=== PATIENT | female | born 1965 | race Caucasian/White ===

== ENCOUNTER 2018-09-12 21:17 | Emergency (ER) | payer OTHER ==
[~2018-09-12] VITALS: Ht 157.5 cm; Wt 68.0 kg
[~2018-09-12 21:17] MED LIST: SYNTHROID PO
[2018-09-12 22:06] LABS: BASOPHILS % (AUTO) 0.5 % (0.0-2.0); EOSINOPHILS # (AUTO) 0.1 K/uL (0.0-0.7); HEMOGLOBIN 13.1 g/dL (10.9-14.3); MONOCYTES # (AUTO) 0.7 K/uL (2.0-10.0); NEUTROPHILS # (AUTO) 4.8 K/uL (1.8-8.9); WHITE BLOOD COUNT (AUTO) 8.3 K/uL (3.8-11.8)
[2018-09-12 22:15] LABS: EOSINOPHILS % (AUTO) 1.5 % (0.0-7.0); HEMATOCRIT 41.4 % (31.2-41.9); LYMPHOCYTES # (AUTO) 2.6 K/uL (20.0-40.0); LYMPHOCYTES % (AUTO) 31.8 % (20.5-51.5); MEAN CORPUSCULAR HEMOGLOBIN 25.1 uug (24.7-32.8); MEAN CORPUSCULAR HGB CONC 32 g/dL (32.3-35.6); MEAN CORPUSCULAR VOLUME 79.4 fL (75.5-95.3); MONOCYTES % (AUTO) 8.6 % (0.0-11.0); NEUTROPHILS % (AUTO) 57.6 % (38.5-71.5); PLATELET COUNT (AUTO) 285 K/uL (179-408); RED BLOOD CELL COUNT(AUTO) 5.21 MIL/uL (3.63-4.92)
[2018-09-12 22:20] LABS: CREATININE 0.5 mg/dL (0.6-1.3); POTASSIUM 4.3 mmol/L (3.5-5.1)
--- NOTE | 2018-09-12 22:20 | NUR ---
DR LORA INTO DO RECTAL EXAM WITH NURSING MAIL SERVICE COORDINATOR MARILYN INTO UNIVERSITY MANAGER
--- NOTE | 2018-09-12 22:46 | NUR ---
Dr. Bowles at bedside for MSE.
--- NOTE | 2018-09-12 22:52 | NUR ---
Patient discharged to home in stable conditon. Written and verbal after care instructions given. Patient verbalizes understanding of instructions. WALKED OUT OF ER WITH NO DISTRESS NOTED
[2018-09-12 22:54] VITALS: BP 120/78
== END 2018-09-12 22:54 | disposition home or self-care (01) ==
LOC: ER 21:17
DX: K60.2 Anal fissure, unspecified (principal); K64.9 Unspecified hemorrhoids; Z79.899 Other long term (current) drug therapy
CPT/HCPCS: 36415; 85025; 85730; 86850; 86900; 86901; A4663

== ENCOUNTER 2019-09-15 13:29 | Emergency (ER) | payer OTHER ==
[~2019-09-15] VITALS: Ht 157.5 cm; Wt 68.0 kg
[2019-09-15] MEDS ORDERED: CEPH500C2 PO (13:44)
[2019-09-15 13:57] VITALS: BP 127/88
== END 2019-09-15 14:01 | disposition home or self-care (01) ==
LOC: ER 13:29
DX: K04.7 Periapical abscess without sinus (principal)
CPT/HCPCS: A4663

== ENCOUNTER 2022-08-21 22:52 | Emergency (ER) | payer OTHER ==
[~2022-08-21] VITALS: Ht 157.5 cm; Wt 59.9 kg
[~2022-08-21 22:52] MED LIST changes: +CEPH500C2 PO
--- NOTE | 2022-08-22 00:15 | NUR ---
PT BIB W/C TO [facility] WITH C/O DEMOND KNEE PAIN AFTER TRIP AND FALL, GLF.
--- NOTE | 2022-08-22 00:30 | NUR ---
DEMOND KNEE X RAY DONE AT BEDSIDE.
[2022-08-22] MEDS ORDERED: KETOROLAC TROMETHAMINE 60 MG INJ IM ONE ×2 (00:42→00:45)
--- NOTE | 2022-08-22 00:45 | NUR ---
PT TO CT VIA [facility].
[2022-08-22] MEDS ORDERED: HYDR-3980 PO (02:12)
--- NOTE | 2022-08-22 02:15 | NUR ---
KNEE IMMOBILIZER PLACED ON RT LE AND CRUTCH TRAINING GIVEN.
--- NOTE | 2022-08-22 02:50 | NUR ---
PT A,A AND O X 4 WITH PAIN LEVEL 3.Patient discharged to home in stable condition. Written and verbal after care instructions given. Patient verbalizes understanding of instructions. Stressed follow up or return to ER for worsening s/s. PT LEFT VIA W/C TO CAR.
[2022-08-22 05:59] VITALS: BP 110/61
== END 2022-08-22 02:50 | disposition home or self-care (01) ==
LOC: ER 22:52
DX: S82.144A Nondisplaced bicondylar fracture of right tibia, initial encounter for closed fracture (principal); E03.9 Hypothyroidism, unspecified; Z79.899 Other long term (current) drug therapy; W10.9XXA Fall (on) (from) unspecified stairs and steps, initial encounter; Y93.89 Activity, other specified; Y92.89 Other specified places as the place of occurrence of the external cause; Y99.8 Other external cause status
CPT/HCPCS: 99284; 73700; 73562; 96372; J1885; A4663

== ENCOUNTER 2023-08-14 20:39 | Emergency (ER) | payer OTHER ==
[~2023-08-14] VITALS: Ht 167.6 cm; Wt 61.2 kg
[~2023-08-14 20:39] MED LIST changes: +HYDR-3980 PO
[2023-08-14] MEDS ORDERED: PENICILLIN G BENZATHINE 1.2 MMU/2 ML DISP.SYRIN IM ONE (21:07)
[2023-08-14] MEDS ORDERED: CLINDAMYCIN HCL 300 MG CAPSULE ONE (21:07)
[2023-08-14] MEDS ORDERED: CLIN300C12 PO (21:12)
[2023-08-14] MEDS ORDERED: HYDR-3980 PO (21:12)
[2023-08-14] MEDS: PENICILLIN G BENZATHINE 2.4 MMU/4 ML DISP.SYRIN IM ONE (21:14)
[2023-08-14] MEDS: CLINDAMYCIN HCL 150 MG CAPSULE PO ONE (21:14)
[2023-08-14 21:20] VITALS: BP 125/72; TEMP 98.6; O2SAT 99
== END 2023-08-14 21:20 | disposition home or self-care (01) ==
LOC: ER 20:40
DX: K05.10 Chronic gingivitis, plaque induced (principal); K08.89 Other specified disorders of teeth and supporting structures; Z79.899 Other long term (current) drug therapy; Z60.2 Problems related to living alone
CPT/HCPCS: 99283; 96372; J0561; A4606; A4663

== ENCOUNTER 2023-11-01 23:22 | Emergency (ER) | payer OTHER ==
[~2023-11-01] VITALS: Ht 157.5 cm; Wt 59.0 kg
[~2023-11-01 23:22] MED LIST changes: +CLIN300C12 PO
[2023-11-01] MEDS ORDERED: NEOMY/BACITRA/POLYMYXIN B OINT UD PACKET TP ONE (23:49)
[2023-11-01] MEDS ORDERED: TDAP DIPH,PERTUSS,TET VAC/PF 0.5 ML DISP.SYRIN IM ONE (23:49)
[2023-11-01] MEDS ORDERED: SULF1TAB48 PO (23:57)
[2023-11-02] MEDS: NEOMY/BACITRA/POLYMYXIN B OINT UD PACKET TP ONE (00:02)
[2023-11-02] MEDS: TDAP DIPH,PERTUSS,TET VAC/PF 0.5 ML DISP.SYRIN IM ONE (00:02)
[2023-11-02] MEDS: SULFAMETH/TRIMETH 800/160 MG TABLET PO ONE (00:02)
[2023-11-02 00:23] VITALS: BP 110/68; TEMP 98; O2SAT 99
== END 2023-11-02 00:24 | disposition home or self-care (01) ==
LOC: ER 23:33
DX: S61.230A Puncture wound without foreign body of right index finger without damage to nail, initial encounter (principal); E03.9 Hypothyroidism, unspecified; Z79.899 Other long term (current) drug therapy; Z79.891 Long term (current) use of opiate analgesic; Z60.2 Problems related to living alone; W26.8XXA Contact with other sharp object(s), not elsewhere classified, initial encounter; Y93.89 Activity, other specified; Y92.89 Other specified places as the place of occurrence of the external cause; Y99.8 Other external cause status
CPT/HCPCS: 90715; A4606; A4663

== ENCOUNTER 2024-07-04 22:21 | Emergency (ER) | payer OTHER ==
[~2024-07-04] VITALS: Ht 157.5 cm; Wt 68.0 kg
[~2024-07-04 22:21] MED LIST changes: +SULF1TAB48 PO
[2024-07-04 23:27] LABS: BASOPHILS # (AUTO) 0.1 K/UL (0.0-0.2); BASOPHILS % (AUTO) 0.8 % (0.0-2.0); EOSINOPHILS # (AUTO) 0.1 K/uL (0.0-0.7); HEMATOCRIT 33.1 % (31.2-41.9); HEMOGLOBIN 11.3 g/dL (10.9-14.3); LYMPHOCYTES # (AUTO) 2.2 K/uL (0.8-4.8); LYMPHOCYTES % (AUTO) 30.2 % (20.5-51.5); MEAN CORPUSCULAR HEMOGLOBIN 27.9 uug (24.7-32.8); MEAN CORPUSCULAR HGB CONC 34 g/dL (32.3-35.6); MEAN CORPUSCULAR VOLUME 81.8 fL (75.5-95.3); MONOCYTES # (AUTO) 0.7 K/uL (0.1-1.30); MONOCYTES % (AUTO) 9.4 % (0.0-11.0); NEUTROPHILS # (AUTO) 4.3 K/uL (1.8-8.9); NEUTROPHILS % (AUTO) 57.6 % (38.5-71.5); PLATELET COUNT (AUTO) 280 K/uL (179-408); RED BLOOD CELL COUNT(AUTO) 4.05 MIL/uL (3.63-4.92); WHITE BLOOD COUNT (AUTO) 7.4 K/uL (3.8-11.8)
[2024-07-04 23:29] LABS: DIFFERENTIAL COMMENT 1
[2024-07-04] MEDS ORDERED: CEFAZOLIN 1 G VIAL ONE (23:30)
[2024-07-04] MEDS: CEFAZOLIN 1 G in IV DEXTROSE 5% 50 ML IV ONE (23:36)
[2024-07-04 23:39] LABS: CALCIUM 9.5 mg/dL (8.5-10.1); CREATININE 0.9 mg/dL (0.6-1.3); POTASSIUM 3.3 mmol/L (3.5-5.1)
[2024-07-04 23:45] LABS: ALBUMIN 3.8 g/dL (3.4-5.0); BILIRUBIN,TOTAL 0.8 mg/dL (0.2-1.0); TOTAL PROTEIN, SERUM 7.9 g/dL (6.4-8.2)
[2024-07-04 23:46] LABS: C-REACTIVE PROTEIN 0.31 mg/dL (0.00-0.30)
[2024-07-05] MEDS ORDERED: IOHEXOL 300MG/ML 100 ML INFUS..BTL ONE (00:18)
[2024-07-05] MEDS ORDERED: IV NORMAL SALINE 250 ML IV ONE (00:18)
[2024-07-05] MEDS ORDERED: SWABABLE VALVE TRANSFER SET EA MC ONE (00:18)
[2024-07-05] MEDS: POTASSIUM CHLORIDE 20 MEQ TAB.PRT.SR PO ONE (01:17)
[2024-07-05] MEDS ORDERED: SULF1TAB48 PO (02:58)
[2024-07-05] MEDS ORDERED: AMOX-430 PO (02:58)
[2024-07-05] MEDS: SULFAMETH/TRIMETH 800/160 MG TABLET PO ONE (03:00)
[2024-07-05] MEDS: AMOXICILLIN-CLAVUL 875-125MG TABLET PO ONE (03:00)
[2024-07-05 03:02] VITALS: BP 110/56; TEMP 97.7; O2SAT 98
== END 2024-07-05 03:02 | disposition home or self-care (01) ==
LOC: ER 22:28
DX: L02.11 Cutaneous abscess of neck (principal); L03.221 Cellulitis of neck; E03.9 Hypothyroidism, unspecified; R05.9 Cough, unspecified; Z88.7 Allergy status to serum and vaccine; Z60.2 Problems related to living alone
CPT/HCPCS: 99285; 96365; 70491; 80053; 85025; 85610; 86140; 36415; 83605; J0690; Q9967; A4606; A4663

== ENCOUNTER 2024-07-26 21:52 | Emergency (ER) | payer OTHER ==
[~2024-07-26] VITALS: Ht 160 cm; Wt 58.1 kg
[~2024-07-26 21:52] MED LIST changes: +AMOX-430 PO
[2024-07-26 22:32] LABS: BASOPHILS # (AUTO) 0.1 K/UL (0.0-0.2); EOSINOPHILS # (AUTO) 0.1 K/uL (0.0-0.7); EOSINOPHILS % (AUTO) 1.1 % (0.0-7.0); HEMATOCRIT 39.1 % (31.2-41.9); HEMOGLOBIN 12.5 g/dL (10.9-14.3); LYMPHOCYTES # (AUTO) 1.9 K/uL (0.8-4.8); LYMPHOCYTES % (AUTO) 25.6 % (20.5-51.5); MEAN CORPUSCULAR HEMOGLOBIN 26.6 uug (24.7-32.8); MEAN CORPUSCULAR HGB CONC 32 g/dL (32.3-35.6); MONOCYTES # (AUTO) 0.9 K/uL (0.1-1.30); MONOCYTES % (AUTO) 12.3 % (0.0-11.0); NEUTROPHILS # (AUTO) 4.4 K/uL (1.8-8.9); PLATELET COUNT (AUTO) 268 K/uL (179-408); RED BLOOD CELL COUNT(AUTO) 4.71 MIL/uL (3.63-4.92); RED CELL DISTRIBUTION WIDTH 15.6 % (12.3-17.7); WHITE BLOOD COUNT (AUTO) 7.3 K/uL (3.8-11.8)
[2024-07-26 22:34] LABS: DIFFERENTIAL COMMENT 1
[2024-07-26 22:43] LABS: CALCIUM 9.8 mg/dL (8.5-10.1); CARBON DIOXIDE 25 mmol/L (21-32); CHLORIDE 109 mmol/L (98-107); CREATININE 0.8 mg/dL (0.6-1.3); GLUCOSE 102 mg/dL (74-106); POTASSIUM 3.3 mmol/L (3.5-5.1); SODIUM SERUM 144 mmol/L (136-145); UREA NITROGEN, BLOOD 17 mg/dL (7-18)
[2024-07-26 22:56] LABS: ALANINE AMINOTRANSFERASE 10 U/L (14-59); ALBUMIN 3.6 g/dL (3.4-5.0); ALKALINE PHOSPHATASE 102 U/L (50-136); ASPARTATE AMINOTRANSFERASE 17 U/L (15-37); BILIRUBIN,DIRECT 0.2 mg/dL (0.0-0.2); BILIRUBIN,TOTAL 0.8 mg/dL (0.2-1.0); NT-PRO BNP 47 pg/mL (0-125); TOTAL PROTEIN, SERUM 7.1 g/dL (6.4-8.2)
[2024-07-26] MEDS ORDERED: AZIT250T13 PO (23:40)
[2024-07-26 23:55] VITALS: BP 132/80; O2SAT 100
== END 2024-07-26 23:55 | disposition home or self-care (01) ==
LOC: ER 21:56
DX: J20.9 Acute bronchitis, unspecified (principal); E03.9 Hypothyroidism, unspecified; Z88.7 Allergy status to serum and vaccine; Z60.2 Problems related to living alone
CPT/HCPCS: 36415; 71045; 84484; 85025; A4606; A4663

== ENCOUNTER 2024-08-01 22:00 | Emergency (ER) | payer OTHER ==
[~2024-08-01] VITALS: Ht 157.5 cm; Wt 59.0 kg
[~2024-08-01 22:00] MED LIST changes: +AZIT250T13 PO
[2024-08-01] MEDS ORDERED: FLUT16SP16 BNOSTRILS (23:49)
[2024-08-01] MEDS ORDERED: DOXY-326 PO (23:49)
[2024-08-01] MEDS ORDERED: GUAI5SYR PO (23:49)
[2024-08-02 00:03] VITALS: BP 149/92; O2SAT 100
== END 2024-08-02 00:04 | disposition home or self-care (01) ==
LOC: ER 22:03
DX: J20.9 Acute bronchitis, unspecified (principal); E03.9 Hypothyroidism, unspecified; R09.82 Postnasal drip; Z88.7 Allergy status to serum and vaccine; Z60.2 Problems related to living alone
CPT/HCPCS: 71046; A4606; A4663

== ENCOUNTER 2025-01-11 20:25 | Emergency (ER) | payer OTHER ==
[~2025-01-11] VITALS: Ht 160 cm; Wt 59.0 kg
[2025-01-11 20:25] VITALS: BP 120/76
[~2025-01-11 20:25] MED LIST changes: +DOXY-326 PO; +FLUT16SP16 BNOSTRILS; +GUAI5SYR PO
[2025-01-11] MEDS ORDERED: TETRACAINE HCL 0.5% OPHT DROP 2 ML BOTTLE ONE (20:46)
[2025-01-11] MEDS ORDERED: FLUORESCEIN SODIUM 1 MG STRIP ONE (20:47)
[2025-01-11] MEDS: FLUORESCEIN SODIUM 1 MG STRIP OP ONE (20:51)
[2025-01-11] MEDS: TETRACAINE HCL 2% TOP SOLUTION 30 ML BOTTLE TP ONE (20:52)
[2025-01-11] MEDS ORDERED: POLY10DR6 EACHEYE (21:01)
[2025-01-11] MEDS ORDERED: AMOX875T2 PO (21:01)
[2025-01-11] MEDS ORDERED: SULFAMETH/TRIMETH 800/160 MG TABLET ONE (21:08)
[2025-01-11] MEDS: SULFAMETH/TRIMETH 800/160 MG TABLET PO ONE (21:11)
[2025-01-11 21:27] VITALS: BP 120/76; O2SAT 99
== END 2025-01-11 21:27 | disposition home or self-care (01) ==
LOC: ER 20:30
DX: L03.213 Periorbital cellulitis (principal); H10.9 Unspecified conjunctivitis; E03.9 Hypothyroidism, unspecified; Z88.7 Allergy status to serum and vaccine
CPT/HCPCS: A4606; A4663; J3590

== ENCOUNTER 2025-02-28 20:49 | Emergency (ER) | payer OTHER ==
[~2025-02-28] VITALS: Ht 157.5 cm; Wt 55.8 kg
[~2025-02-28 20:49] MED LIST changes: +AMOX-319 PO; -AMOX-430 PO; +AMOX875T2 PO; +CLIN-188 PO; -CLIN300C12 PO; -DOXY-326 PO; +DOXY-461 PO; +POLY10DR6 EACHEYE
[2025-02-28 20:58] VITALS: BP 116/84
[2025-02-28] MEDS ORDERED: AZIT250T PO (21:24)
[2025-02-28 21:29] VITALS: BP 118/82; TEMP 97.9; O2SAT 100
== END 2025-02-28 21:29 | disposition home or self-care (01) ==
LOC: ER 20:55
DX: J02.9 Acute pharyngitis, unspecified (principal); E03.9 Hypothyroidism, unspecified; Z88.7 Allergy status to serum and vaccine
CPT/HCPCS: A4606; A4663